=== PATIENT | male | born 1975 | race Caucasian/White ===

== ENCOUNTER → 2016-09-22 | Outpatient (CLI) | payer OTHER ==
[~2016-09-22] MED LIST: AMPH30CA3 PO; HYDR200T5 PO; OXYC-57 PO
--- NOTE | 2016-09-22 16:37 | DIAGNOSTIC IMAGING REPORT ---
TWO VIEW CHEST CLINICAL HISTORY: Scleroderma. Chest congestion. FINDINGS: PA and lateral chest radiographs are obtained. No prior studies are available for comparison at the time of dictation. The cardiomediastinal silhouette is unremarkable. The lungs and pleural spaces are clear. There is no pneumothorax. The bony thorax appears intact. IMPRESSION: No active disease in the chest. Electronically signed by: Damon Espinoza M.D. 09/22/2016 4:36 PM Dictated Date/Time: 09/22/2016 4:35 PM
== END | disposition home or self-care (01) ==
LOC: C.RAD1850 16:18
PROVIDERS: ATTEND Internal Medicine Rheumatology
DX: M34.9 Systemic sclerosis, unspecified (principal)

== ENCOUNTER 2016-09-25 18:28 | Emergency (ER) | payer OTHER | END 2016-09-25 18:42 | disposition left against medical advice (07) | LOC: C.EDB 18:29 | DX: S60.551A Superficial foreign body of right hand, initial encounter (principal); W45.8XXA Other foreign body or object entering through skin, initial encounter ==

== ENCOUNTER 2016-12-24 04:34 | Emergency (ER) | payer OTHER ==
[~2016-12-24] VITALS: Ht 190.5 cm; Wt 97.0 kg
[2016-12-24 04:37] VITALS: TEMP 36.8; Ht 190.5 cm; Wt 97.0 kg
[2016-12-24] MEDS ORDERED: ONDANSETRON INJ 2 MG/ML 2 ML VIAL IV STA (04:51)
[2016-12-24] MEDS ORDERED: SODIUM CHLORIDE 0.9% 1000ML 1,000 ML IV ONE (05:00)
[2016-12-24 05:15] LABS: BASO % 0.8 %; BASO ABS # 0.04 K/uL (0-0.2); COMPLETE YES; EOS % 8.4 %; HEMATOCRIT 43.8 % (42-52); IG% 0.2 %; LYMPH % 28.4 %; LYMPH ABS # 1.48 K/uL (1.2-3.4); MEAN CELL VOLUME 90.7 fL (80-100); MEAN CORPUSCULAR HEMOGLOBIN 31.7 pg (25-34); MEAN CORPUSCULAR HGB CONC 34.9 g/dl (32-36); MEAN PLATELET VOLUME 10.3 fL (7.4-10.4); MONO % 10.6 %; NEUT % 51.6 %; PLATELET COUNT 183 K/uL (130-400); RED BLOOD COUNT 4.83 M/uL (4.7-6.1); WHITE BLOOD COUNT 5.21 K/uL (4.8-10.8)
[2016-12-24] MEDS ORDERED: OPTIRAY 320 IV PRN (05:15)
[2016-12-24 05:18] LABS: URINE APPEARANCE CLEAR (CLEAR); URINE BILIRUBIN NEG (NEG); URINE COLOR YELLOW; URINE NITRITE NEG (NEG); URINE PH 7.5 (4.5-7.5); URINE SPECIFIC GRAVITY 1.014 (1.000-1.030); UROBILINOGEN NEG (NEG); ZZUR CULT IF INDIC CLEAN CATCH NO
[2016-12-24 05:22] LABS: MANUAL MICROSCOPIC REQUIRED? NO; REVIEW REQ? NO
[2016-12-24 05:33] LABS: BUN/CREATININE RATIO 16.6 (10-20); CALCIUM 8.7 mg/dl (8.5-10.1); CREATININE 0.84 mg/dl (0.60-1.40); POTASSIUM 4.2 mmol/L (3.5-5.1)
[2016-12-24 05:35] LABS: ALB/GLOB RATIO 1.6 (0.9-2)
[2016-12-24] MEDS ORDERED: AMPH30CA3 PO (05:50)
[2016-12-24] MEDS ORDERED: HYDR200T5 PO (06:10)
[2016-12-24] MEDS ORDERED: OXYC-57 PO (06:11)
--- NOTE | 2016-12-24 07:01 | EMERGENCY ROOM VISIT NOTE ---
History First contact with patient: 04:42 Chief Complaint: ABDOMINAL PAIN Stated Complaint: SHARP PAIN RIGHT LWR ABDOMEN Nursing Triage Summary: abdominal pain, more so on the right side, patient states not sure if it is his appendix or if he pulled something History of Present Illness The patient is a 41 year old male who presents to the Emergency Room with complaints of right lower quadrant abdominal pain worsening over the past 2 days. The patient states that his symptoms began while he was driving, and felt like his belt was too tight. He states that over the course of the past 48 hours he has had worsening pain in the right lower quadrant. He does not have a history of abdominal surgery in the past. He has not had nausea, vomiting, or diarrhea. He rates his discomfort a 7/10, describes it as a burning or tearing. He does not have flank pain or difficulty using the bathroom. Review of Systems More than 10 systems were reviewed and otherwise negative with the exception of history of present illness. Past Medical/Surgical History No pertinent chronic medical disease Family History No pertinent family history Social History Smoking Status: Current Some Day Smoker Occupation Status: employed Current/Historical Medications Scheduled Amphetamine-Dextroamphetamine 30MG (Adderall Xr 30MG), 30 MG PO DAILY Hydroxychloroquine Sulfate (Plaquenil), 400 MG PO DAILY Scheduled PRN Oxycodone/Acetaminophen 5MG/325MG (Percocet 5MG/325MG), 1 TABLET PO Q6H PRN for Pain Allergies Uncoded Allergies: PENICILLIN (Allergy, Mild, unknown, 12/24/16) states from when he was a kid, reaction unknown Physical Exam Vital Signs Date Time Temp Pulse Resp B/P (MAP) Pulse Ox O2 Delivery O2 Flow Rate FiO2 12/24/16 06:33 70 14 118/78 97 Room Air 12/24/16 05:19 78 16 121/84 98 Room Air 12/24/16 04:37 36.8 91 18 139/91 98 Room Air Physical Exam VITALS: Vitals are noted on the nurse's note and reviewed by myself. Vital signs stable. GENERAL: Well-developed, well-nourished, white male, who is in no acute distress and resting comfortably. Patient is cooperative with the examination. HEAD: Normocephalic atraumatic. HEART: Regular rate and rhythm without murmurs gallops or rubs. LUNGS: Clear to auscultation bilaterally without wheezes, rales or rhonchi. No retractions or accessory muscle use. ABDOMEN: Positive normal bowel sounds x 4. Soft with positive right lower quadrant tenderness on palpation. No rebound or guarding. No CVA tenderness. MUSCULOSKELETAL: No muscle atrophy, erythema, or edema noted. Full range of motion without joint tenderness in all extremities. Medical Decision & Procedures Laboratory Results 12/24/16 05:00 Red Blood Count 4.83, Mean Corpuscular Volume 90.7, Mean Corpuscular Hemoglobin 31.7, Mean Corpuscular Hemoglobin Concent 34.9, Mean Platelet Volume 10.3, Neutrophils (%) (Auto) 51.6, Lymphocytes (%) (Auto) 28.4, Monocytes (%) (Auto) 10.6, Eosinophils (%) (Auto) 8.4, Basophils (%) (Auto) 0.8, Neutrophils # (Auto ) 2.69, Lymphocytes # (Auto) 1.48, Monocytes # (Auto) 0.55, Eosinophils # (Auto ) 0.44, Basophils # (Auto) 0.04 12/24/16 05:00 Test 12/24/16 05:00 White Blood Count 5.21 K/uL (4.8-10.8) Red Blood Count 4.83 M/uL (4.7-6.1) Hemoglobin 15.3 g/dL (14.0-18.0) Hematocrit 43.8 % (42-52) Mean Corpuscular Volume 90.7 fL (80-100) Mean Corpuscular Hemoglobin 31.7 pg (25-34) Mean Corpuscular Hemoglobin Concent 34.9 g/dl (32-36) Platelet Count 183 K/uL (130-400) Mean Platelet Volume 10.3 fL (7.4-10.4) Neutrophils (%) (Auto) 51.6 % Lymphocytes (%) (Auto) 28.4 % Monocytes (%) (Auto) 10.6 % Eosinophils (%) (Auto) 8.4 % Basophils (%) (Auto) 0.8 % Neutrophils # (Auto) 2.69 K/uL (1.4-6.5) Lymphocytes # (Auto) 1.48 K/uL (1.2-3.4) Monocytes # (Auto) 0.55 K/uL (0.11-0.59) Eosinophils # (Auto) 0.44 K/uL (0-0.5) Basophils # (Auto) 0.04 K/uL (0-0.2) RDW Standard Deviation 41.7 fL (36.4-46.3) RDW Coefficient of Variation 12.5 % (11.5-14.5) Immature Granulocyte % (Auto) 0.2 % Immature Granulocyte # (Auto) 0.01 K/uL (0.00-0.02) Urine Color YELLOW Urine Appearance CLEAR (CLEAR) Urine pH 7.5 (4.5-7.5) Urine Specific [place] 1.014 (1.000-1.030) Urine Protein NEG (NEG) Urine Glucose (UA) NEG (NEG) Urine Ketones NEG (NEG) Urine Occult Blood NEG (NEG) Urine Nitrite NEG (NEG) Urine Bilirubin NEG (NEG) Urine Urobilinogen NEG (NEG) Urine Leukocyte Esterase NEG (NEG) Anion Gap 6.0 mmol/L (3-11) Est Creatinine Clear Calc Drug Dose 138.3 ml/min Estimated GFR () 126.0 Estimated GFR (Non- 108.8 BUN/Creatinine Ratio 16.6 (10-20) Calcium Level 8.7 mg/dl (8.5-10.1) Total Bilirubin 0.6 mg/dl (0.2-1) Aspartate Amino Transf (AST/SGOT) 19 U/L (15-37) Alanine Aminotransferase (ALT/SGPT) 38 U/L (12-78) Alkaline Phosphatase 53 U/L (45-117) Total Protein 6.9 gm/dl (6.4-8.2) Albumin 4.2 gm/dl (3.4-5.0) Globulin 2.7 gm/dl (2.5-4.0) Albumin/Globulin Ratio 1.6 (0.9-2) Lipase 63 U/L (73-393) Medications Administered Medications (Trade) Dose Ordered Sig/Margaret Route Start Time Stop Time Status Last Admin Dose Admin Sodium Chloride 1,000 ml @ 999 mls/hr Q1H1M ONCE IV 12/24/16 05:00 12/24/16 06:00 DC 12/24/16 05:00 999 MLS/HR Ondansetron HCl (Zofran Inj) 4 mg NOW STAT IV 12/24/16 04:51 12/24/16 04:53 DC 12/24/16 05:16 4 MG ED Course Physical exam and history were performed. Nursing notes and EMR were reviewed. Patient appears to have right lower quadrant abdominal pain over the past 2 days. He does have tenderness in this area. IV access was established and labs were obtained. The patient was hydrated medicated as above. CT scan of the abdomen and pelvis was performed with contrast. The patient's blood work is as above and was reviewed. He does not have a significantly elevated white blood cell count, gross anemia, bandemia, or significant electrolyte imbalance or lipase and transaminases are nondiagnostic. Urine is without evidence of infection. The patient remained in stable condition until the time of shift change. At this time CT scan has been ordered and is pending. The patient was discussed with Torie Mclaughlin PA-C, who will assume care at this time. Please see her dictation for further patient course, plan, and disposition. The chart was completed utilizing [employer] Speech Voice Recognition Software. Grammatical errors, random word insertions, pronoun errors, and incomplete sentences are an occasional consequence of this system due to software limitations, ambient noise, and hardware issues. Any formal questions or concerns about the content, text, or information contained within the body of this dictation should be directly addressed to the provider for clarification. . Medical Decision Differential diagnosis: Etiologies such as appendicitis, diverticulitis, PUD, biliary pathology, UTI, pancreatitis, obstruction, mesenteric ischemia, aortic pathology, infections, inflammatory bowel disease, renal colic, as well as others were entertained. Impression Primary Impression: Abdominal pain Departure Information Referrals Bob Muñoz M.D. (PCP) Patient Instructions [facility]
--- NOTE | 2016-12-24 08:06 | DIAGNOSTIC IMAGING REPORT ---
CT ABD/PELVIS IV AND ORAL CONT CLINICAL HISTORY: Worsening right lower quadrant abdominal pain. COMPARISON STUDY: None. TECHNIQUE: Following the IV administration of 94 mL of Optiray-320, CT scan of the abdomen and pelvis was performed from the lung bases to the proximal femurs. Images are reviewed in the axial, sagittal, and coronal planes. IV contrast was administered without complication. CT DOSE: 709.40 mGycm FINDINGS: Lower chest: There are bibasal atelectatic changes. Liver: There is a 4 mm hypodensity within the central liver. This is too small to characterize but is of doubtful significance. Gallbladder: Unremarkable. Spleen: Normal in size and attenuation. Pancreas: Unremarkable. Adrenal glands: Unremarkable. Kidneys: There is symmetric renal cortical enhancement. The kidneys are normal in size without hydronephrosis. Bowel: There are no transition zones indicate bowel obstruction. The appendix appears normal. There is no acute diverticulitis. There is a moderate amount of stool within the right and transverse colon. Peritoneum: There is no intraperitoneal free air or abdominal ascites. Vasculature: The abdominal aorta is normal in course and caliber. Adenopathy: Para-aortic lymph nodes are the upper limits of normal in size. There is no pathologic abdominal adenopathy by size criteria Pelvic viscera: There is mild nonspecific bladder wall thickening. Skeletal structures: No destructive osseous lesions are seen. IMPRESSION: 1. No evidence of bowel obstruction. No evidence of free air. 2. Normal appendix 3. No evidence of acute diverticulitis 4. Mild bladder wall thickening 5. Mild fecal retention Electronically signed by: Baltazar Thomas M.D. 12/24/2016 8:04 AM Dictated Date/Time: 12/24/2016 8:00 AM
--- NOTE | 2016-12-24 08:09 | EMERGENCY ROOM VISIT NOTE ---
ED Visit Note First contact with patient: 07:03 The patient was signed out to me at shift change by Reece Riggs PA-C. Briefly, the patient presents with right-sided abdominal pain. At the time of sign out, CT imaging was pending. CT was obtained as below. The patient has mild fecal retention. I did review the entire CT with the patient. I also reviewed the laboratory studies with him. The patient states that he is currently living in for yet but is trying to transition back to this area. He was advised to follow up with gastroenterology and or a family doctor for recheck and further management early next week. He should return to the ER with any worsening symptoms. CT ABD/PELVIS IV AND ORAL CONT CLINICAL HISTORY: Worsening right lower quadrant abdominal pain. COMPARISON STUDY: None. TECHNIQUE: Following the IV administration of 94 mL of Optiray-320, CT scan of the abdomen and pelvis was performed from the lung bases to the proximal femurs. Images are reviewed in the axial, sagittal, and coronal planes. IV contrast was administered without complication. CT DOSE: 709.40 mGycm FINDINGS: Lower chest: There are bibasal atelectatic changes. Liver: There is a 4 mm hypodensity within the central liver. This is too small to characterize but is of doubtful significance. Gallbladder: Unremarkable. Spleen: Normal in size and attenuation. Pancreas: Unremarkable. Adrenal glands: Unremarkable. Kidneys: There is symmetric renal cortical enhancement. The kidneys are normal in size without hydronephrosis. Bowel: There are no transition zones indicate bowel obstruction. The appendix appears normal. There is no acute diverticulitis. There is a moderate amount of stool within the right and transverse colon. Peritoneum: There is no intraperitoneal free air or abdominal ascites. Vasculature: The abdominal aorta is normal in course and caliber. Adenopathy: Para-aortic lymph nodes are the upper limits of normal in size. There is no pathologic abdominal adenopathy by size criteria Pelvic viscera: There is mild nonspecific bladder wall thickening. Skeletal structures: No destructive osseous lesions are seen. IMPRESSION: 1. No evidence of bowel obstruction. No evidence of free air. 2. Normal appendix 3. No evidence of acute diverticulitis 4. Mild bladder wall thickening 5. Mild fecal retention
[2016-12-24 08:28] VITALS: BP 137/84; PULSE 64; O2SAT 98
[2017-06-07] MEDS ORDERED: DIAZ5TAB3 PO (12:13)
[2017-06-07] MEDS ORDERED: MONT1TAB3 PO (12:24)
[2017-06-09] MEDS ORDERED: OXYC-57 PO (08:45)
== END 2016-12-24 08:28 | disposition home or self-care (01) ==
LOC: C.EDB 04:35 → C.EDA 08:28
DX: R10.31 Right lower quadrant pain (principal); F17.210 Nicotine dependence, cigarettes, uncomplicated; Z79.899 Other long term (current) drug therapy

== ENCOUNTER → 2017-05-23 | Outpatient (CLI) | payer OTHER | END | disposition home or self-care (01) | LOC: C.LABSPEC 14:05 | PROVIDERS: ATTEND Family Medicine | DX: N39.0 Urinary tract infection, site not specified (principal) ==

== ENCOUNTER → 2017-06-09 | Day surgery (SDC) | payer OTHER ==
[2017-06-07 12:14] VITALS: Ht 189.2 cm; Wt 95.5 kg
--- NOTE | 2017-06-08 09:37 | History and Physical: Surg Cnt ---
History & Physical Date Jun 08, 2017. Chief Complaint sinus infections History of Present Illness The patient is a 42 year old male with complaints of chronic sinusitis Additional History Hepatic Disease: No Endocrine Disorder: No Kidney Disease: No Hypertension: No Heart Disease: No Bleeding Tendencies: No Infectious Diseases: No Allergies Coded Allergies: Penicillins (Verified Allergy, Unknown, UNKNOWN, 06/07/17) Uncoded Allergies: CATS (Allergy, Severe, ANAPHALYSIS, 06/07/17) Home Medications Scheduled Amphetamine-Dextroamphetamine 30MG (Adderall Xr 30MG), 30 MG PO QAM Hydroxychloroquine Sulfate (Plaquenil), 400 MG PO QPM Scheduled PRN Diazepam (Valium), 5 MG PO DAILY PRN for Anxiety Montelukast Sodium (Singulair), 10 MG PO DAILY PRN for Seasonal Allergies Physical Examination Skin: warm/dry, no rash Eyes: normal inspection, EOMI, sclerae normal ENT: normal ENT inspection, pharynx normal Head: normocephalic, atraumatic Neck: supple, no adenopathy, trachea midline Respiratory/Chest: lungs clear, normal breath sounds, no respiratory distress Cardiovascular: regular rate, rhythm, no edema, no murmur Abdomen / GI: normal bowel sounds, non tender Back: normal inspection Extremities: normal inspection, normal range of motion Neurologic/Psych: no motor/sensory deficits, alert, normal reflexes, oriented x 3 Diagnosis chronic sinusitis Plan of Treatment endoscopic sinus surgery
[~2017-06-09] VITALS: Ht 189.2 cm; Wt 95.5 kg
[~2017-06-09] MED LIST changes: +ATROPINE SULFATE 0.1 MG/ML 5ML SYR IV PRN; +CEFAZOLIN 1000MG IV PUSH 5 ML IV SCH; +CEFAZOLIN 2000MG IV PUSH 10 ML IV SCH; +DEXAMETHASONE SOD INJ 4 MG/ML VIAL ONE; +DIAZ5TAB3 PO; +EpHEDrine SULFATE INJ 50 MG/ML AMP IV PRN; +EpINEphrine INJ 1MG/ML AMP 1 MG/ML AMP ONE; +FENTANYL CITRATE INJ 50 MCG/1 ML 2 ML VIAL IV PRN; +FENTANYL CITRATE INJ 50 MCG/1 ML 2 ML VIAL ONE; +HYDROmorphone INJ 1 MG/ML SYR IV PRN; +LACTATED RINGER'S 1000ML 1,000 ML IV SCH; +LIDO 2%/EPINEPHRINE 1:100000 20 ML VIAL INFIL ONE; +LIDOCAINE 4% MPF SOAK 5 ML = 1 DOSE TOP ONE; +LIDOCAINE HCL 2% 2 ML VIAL (20MG/ML) ONE; +MIDAZOLAM HCL 1 MG/ML 2ML VIAL ONE; +MONT1TAB3 PO; +ONDANSETRON INJ 2 MG/ML 2 ML VIAL IV PRN; +ONDANSETRON INJ 2 MG/ML 2 ML VIAL ONE; +OXYCODONE/ACETAMINOPHEN 5-325 TAB PO PRN; +PROPOFOL IV EMULSION 10 MG/ML 20 ML VIAL IV ONE; +SODIUM CHLORIDE 0.9% 1000ML 1,000 ML IV SCH
--- NOTE | 2017-06-09 06:41 | History & Physical Bridge Note ---
H&P Re-Evaluation Bridge Note: I have examined the patient, reviewed the History & Physical and in the interval since the performance of the History & Physical I have noted the following changes of clinical significance: No changes noted
--- NOTE | 2017-06-09 08:46 | Discharge Instructions-SurgCtr ---
Discharge Instructions Date of Service Jun 09, 2017. Visit Reason for Visit: Chronic Sinusitis Discharge Discharge Diagnosis / Problem: same Discharge Goals Goal(s): Improve disease control Activity Recommendations Activity Limitations: resume your previous activity Anesthesia . Post Anesthesia Instructions: If you have had General Anesthesia or IV Sedation: * Do not drive today. * Resume driving when surgeon permits. * Do not make important decisions or sign legal documents today. * Call surgeon for: 1. Temperature elevations greater than 101 degrees F. 2. Uncontrollable pain. 3. Excessive bleeding. 4. Persistent nausea and vomiting. 5. Medication intolerance (nausea, vomiting or rash). * For nausea and vomiting use only clear liquids such as: tea, soda, bouillon until nausea subsides, then gradually increase diet as tolerated. * If you have any concerns or questions, call your surgeon's office. If physician is unavailable and it is an emergency, call 911 or go to the nearest emergency room. . Instructions / Follow-Up Instructions / Follow-Up ACTIVITY RECOMMENDATIONS: * Being up and around is good, but no strenuous activity, heavy lifting or physical exertion for one week. * Keep your head elevated 30 degrees when lying down or sleeping. * Do not blow your nose for 48 hours, sniff back instead. * Avoid hot showers. OVER THE COUNTER MEDICATIONS: * You may use Tylenol * Avoid aspirin or aspirin containing products, e.g. as they may increase bleeding. SPECIAL CARE INSTRUCTIONS: * Expect to have bloody drainage from your nose and/or down your throat for one to three days. Change drip pad as needed. * Begin irrigating your nose with saline solution today, at least six to ten times per day and sniff back to help remove old clots or crust. * You may experience nasal and facial congestion, pain and pressure, this is normal. * Please call with any significant and/or progressive pain, redness, swelling around the eyes, visual changes, fever of 101.5 degrees F, active bleeding or any problems or concerns. * If active bleeding occurs, spray the nose three times at one minute intervals with Afrin spray and call or cell phone: . If unable to reach the doctor, go to the nearest Emergency Department. Special Diet: * Avoid extremely hot fluids. FOLLOW UP VISIT: Follow-up Visit with Dr. Shay If not already scheduled, please call to schedule. Diet Recommendations Home Diet: no limitations Procedures Procedures Performed: Endoscopic Sinus Surgery with BrainLab Navigation, Right and Left Frontal Sinus , Maxillary and Total Ethmoidectomies Pending Studies Studies pending at discharge: no Medical Emergencies . Who to Call and When: Medical Emergencies: If at any time you feel your situation is an emergency, please call 911 immediately. . Non-Emergent Contact Non-Emergency issues call your: Primary Care Provider . . "Provider Documentation" section prepared by Awa Shay. [facility] Drug Monitoring Program Search Results: no issues identified
--- NOTE | 2017-06-09 09:20 | OPERATIVE REPORT ---
DATE OF OPERATION: 06/09/2017 PREOPERATIVE DIAGNOSIS: Chronic sinusitis. POSTOPERATIVE DIAGNOSIS: Same. PROCEDURE: Right and left frontal, right and left total ethmoid and right and left maxillary sinus antrostomies. SURGEON: Dr. Shay. ANESTHESIA: General LMA. COMPLICATIONS: None. BLOOD LOSS: 30 mL. HISTORY OF PRESENT ILLNESS: A 42-year-old gentleman with significant recurrent chronic sinusitis, failed medical management. DESCRIPTION OF PROCEDURE: The patient brought to the operating room and placed in the supine position. General anesthesia was induced using LMA, prepped and draped in the usual sterile manner. Nose decongested using cottonoids with topical solution of 4 mL of 4% Xylocaine with 1 mL of epinephrine. Injection of 2% Xylocaine with 1:100,000 strength epinephrine was also used. ASOCSLAB device calibrated and used for the entire procedure. The right maxillary sinus cannulated with guidewire and dilated using the 6-mm balloon as was left maxillary sinus. The left nasofrontal duct was cannulated with the guidewire and dilated using the 6-mm balloon. The guidewire was left in place as a marker. The frontal sinusotomy was performed using the shaver coupled with the BrainLAB device, removing the anterior wall and then the posterior wall of the agger nasi cell. There was also a supraethmoidal air cell. This was opened by going through the bullae ethmoidalis and dissecting superiorly to the supraethmoidal air cell, which was found to have purulent material. This was directly behind the nasofrontal duct. At this point, the ground lamella was penetrated and posterior ethmoid air cells were opened. Skull base and lamina papyracea were identified. These structures were followed anteriorly with the BrainLAB coupled with the shaver, removing both all the posterior and then all the anterior ethmoid airs. The nasofrontal duct was then redilated and a Contour stent was placed. The maxillary sinus was opened by removing the polypoid tissue at the posterior part of the ostia and at the anterior wall of the bullae ethmoidalis. The regular Propel stent was placed. The right frontal sinusotomy, total ethmoidectomy, and maxillary sinus antrostomy was performed in a similar manner again placing the Contour and the Propel stents. The patient tolerated the procedure well and was taken to recovery area in satisfactory condition. I attest to the content of the Intraoperative Record and any orders documented therein. Any exceptions are noted below. MTDD
[2017-06-09 09:55] VITALS: BP 132/77; PULSE 72; O2SAT 99
--- NOTE | 2017-06-09 10:00 | Anesthesia Progress Nt - [facility] ---
Anesthesia Post Op Note Date & Time Jun 09, 2017 at 10:00 Vital Signs Pain Intensity: 6 Vital Signs Past 12 Hours Date Time Temp Pulse Resp B/P (MAP) Pulse Ox O2 Delivery O2 Flow Rate FiO2 06/09/17 09:13 36.6 70 16 141/93 (109) 99 Room Air 06/09/17 09:11 36.6 151/89 (102) 06/09/17 09:08 75 15 06/09/17 09:08 77 15 99 06/09/17 09:06 136/85 (100) 06/09/17 09:04 Room Air 06/09/17 09:03 81 13 99 06/09/17 09:03 82 13 06/09/17 09:01 141/82 (97) 06/09/17 08:58 84 06/09/17 08:58 84 100 06/09/17 08:56 141/90 (97) 06/09/17 08:53 73 14 06/09/17 08:53 74 14 100 06/09/17 08:43 36.4 86 16 128/75 100 Diffusion Mask 5 06/09/17 06:37 36.6 88 16 149/79 (102) 95 Room Air Notes Mental Status: alert / awake / arousable, participated in evaluation Pt Amnestic to Procedure: Yes Nausea / Vomiting: adequately controlled Pain: adequately controlled Airway Patency, RR, SpO2: stable & adequate BP & HR: stable & adequate Hydration State: stable & adequate Anesthetic Complications: no major complications apparent
== END | disposition home or self-care (01) ==
LOC: X.SURG 06:26
PROVIDERS: ATTEND Otolaryngology
DX: J32.2 Chronic ethmoidal sinusitis (principal); J32.0 Chronic maxillary sinusitis; J32.1 Chronic frontal sinusitis
CPT/HCPCS: 31255; 31256; 31276; 61782; S1090

== ENCOUNTER 2017-10-07 16:11 | Emergency (ER) | payer OTHER ==
[~2017-10-07] VITALS: Ht 188 cm; Wt 100.0 kg
[~2017-10-07 16:11] MED LIST changes: -ATROPINE SULFATE 0.1 MG/ML 5ML SYR IV PRN; -CEFAZOLIN 1000MG IV PUSH 5 ML IV SCH; -CEFAZOLIN 2000MG IV PUSH 10 ML IV SCH; -DEXAMETHASONE SOD INJ 4 MG/ML VIAL ONE; -EpHEDrine SULFATE INJ 50 MG/ML AMP IV PRN; -EpINEphrine INJ 1MG/ML AMP 1 MG/ML AMP ONE; -FENTANYL CITRATE INJ 50 MCG/1 ML 2 ML VIAL IV PRN; -FENTANYL CITRATE INJ 50 MCG/1 ML 2 ML VIAL ONE; -HYDROmorphone INJ 1 MG/ML SYR IV PRN; -LACTATED RINGER'S 1000ML 1,000 ML IV SCH; -LIDO 2%/EPINEPHRINE 1:100000 20 ML VIAL INFIL ONE; -LIDOCAINE 4% MPF SOAK 5 ML = 1 DOSE TOP ONE; -LIDOCAINE HCL 2% 2 ML VIAL (20MG/ML) ONE; -MIDAZOLAM HCL 1 MG/ML 2ML VIAL ONE; -ONDANSETRON INJ 2 MG/ML 2 ML VIAL IV PRN; -ONDANSETRON INJ 2 MG/ML 2 ML VIAL ONE; -OXYCODONE/ACETAMINOPHEN 5-325 TAB PO PRN; -PROPOFOL IV EMULSION 10 MG/ML 20 ML VIAL IV ONE; -SODIUM CHLORIDE 0.9% 1000ML 1,000 ML IV SCH
[2017-10-07 16:13] VITALS: TEMP 36.8; Ht 188 cm; Wt 100.0 kg
[2017-10-07 16:33] VITALS: O2SAT 97
[2017-10-07] MEDS ORDERED: METOCLOPRAMIDE HCL INJ 5 MG/ML 2 ML VIAL IV STA (16:46)
[2017-10-07] MEDS ORDERED: SODIUM CHLORIDE 0.9% 1000ML 2,000 ML IV STA (16:46)
[2017-10-07 17:14] LABS: BASO % 0.3 %; BASO ABS # 0.02 K/uL (0-0.2); EOS % 6.2 %; HEMATOCRIT 45.1 % (42-52); HEMOGLOBIN 16.1 g/dL (14.0-18.0); IG# 0.01 K/uL (0.00-0.02); LYMPH % 20.5 %; LYMPH ABS # 1.32 K/uL (1.2-3.4); MEAN CELL VOLUME 90.9 fL (80-100); MEAN CORPUSCULAR HEMOGLOBIN 32.5 pg (25-34); MEAN CORPUSCULAR HGB CONC 35.7 g/dl (32-36); MEAN PLATELET VOLUME 10.7 fL (7.4-10.4); MONO % 9.3 %; NEUT % 63.5 %; NEUT ABS # 4.09 K/uL (1.4-6.5); PLATELET COUNT 163 K/uL (130-400); RED CELL DISTRIBUTION WIDTH CV 12.7 % (11.5-14.5); RED CELL DISTRIBUTION WIDTH SD 42.2 fL (36.4-46.3); WHITE BLOOD COUNT 6.44 K/uL (4.8-10.8)
--- NOTE | 2017-10-07 17:24 | DIAGNOSTIC IMAGING REPORT ---
SINGLE VIEW CHEST CLINICAL HISTORY: Atypical chest pain. FINDINGS: An AP, portable, upright chest radiograph is compared to study dated 09/22/2016. The cardiomediastinal silhouette is unremarkable. The lungs and pleural spaces are clear. No pneumothorax is seen. The bony thorax is grossly intact. IMPRESSION: No active disease in the chest. Electronically signed by: Damon Espinoza M.D. 10/07/2017 5:23 PM Dictated Date/Time: 10/07/2017 5:23 PM
[2017-10-07] MEDS ORDERED: OXYC-57 PO (17:38)
[2017-10-07] MEDS ORDERED: AMPH20CA3 PO (17:38)
[2017-10-07] MEDS ORDERED: AMLO2.5T PO (17:38)
[2017-10-07] MEDS ORDERED: AMPH10TA2 PO (17:38)
[2017-10-07] MEDS ORDERED: PRED-301 PO (17:38)
[2017-10-07 17:49] LABS: ALT/SGPT 30 U/L (12-78); AST/SGOT 15 U/L (15-37); BLOOD UREA NITROGEN 12 mg/dl (7-18); CALCIUM 8.8 mg/dl (8.5-10.1); CARBON DIOXIDE 26 mmol/L (21-32); CREATININE 1.02 mg/dl (0.60-1.40); GLUCOSE 122 mg/dl (70-99); LIPASE 71 U/L (73-393); POTASSIUM 3.6 mmol/L (3.5-5.1); SODIUM 139 mmol/L (136-145)
[2017-10-07 17:52] LABS: ALKALINE PHOSPHATASE 53 U/L (45-117)
--- NOTE | 2017-10-07 19:16 | DIAGNOSTIC IMAGING REPORT ---
MRI OF THE BRAIN COMBO CLINICAL HISTORY: Diffuse paresthesias. Ataxia. COMPARISON STUDY: CT scan of the paranasal sinuses dated 05/12/2017. TECHNIQUE: MRI of the brain was performed utilizing various T1 and T2-weighted sequences in the axial, sagittal, and coronal planes. Contrast-enhanced sequences were acquired following the administration of 9.9 cc of Gadavist. The examination was performed using the multiple sclerosis protocol. FINDINGS: Brain parenchyma: The brain parenchyma is normal in appearance. A development venous anomaly is incidentally noted in the left parietal lobe. There is no hemorrhage or mass effect. There is no restricted diffusion to suggest acute ischemia. No enhancing mass lesion is identified on the postcontrast images. Phillips-white matter differentiation is preserved. No extra-axial fluid collection is seen. The cerebellar tonsils are normal in configuration. Ventricles, sulci, and cisterns: Normal in configuration. Pituitary and sella: Unremarkable. Intracranial vasculature: Normal flow voids are maintained at the skull base. Orbits: The bony orbits are grossly intact. Orbital contents are normal in appearance. Sinuses and mastoids: There is evidence of previous paranasal sinus surgery. There is a 1.2 cm retention cyst in the left maxillary antrum. The remaining paranasal sinuses are clear. The mastoid air cells are well pneumatized. Calvarium: Unremarkable. Cervical cord: Partially visualized cervical spinal cord is normal in morphology and signal intensity. IMPRESSION: No acute intracranial abnormality. Electronically signed by: Damon Espinoza M.D. 10/07/2017 7:15 PM Dictated Date/Time: 10/07/2017 7:11 PM
--- NOTE | 2017-10-07 19:55 | DIAGNOSTIC IMAGING REPORT ---
MRI OF THE ORBITS COMBO CLINICAL HISTORY: Blurred vision. COMPARISON STUDY: MRI of the brain performed concurrently on 10/07/2017. TECHNIQUE: MRI of the orbits is performed utilizing various T1 and T2-weighted sequences in the axial, sagittal, and coronal planes. Contrast-enhanced sequences were acquired following the IV administration of 9.9 cc of Gadavist. FINDINGS: The bony orbits are intact as visualized. The orbital contents are normal in appearance. There is no evidence of intra or extraconal mass. The extraocular muscles are normal and symmetric. The optic nerves are normal as visualized. The visualized brain parenchyma is normal in appearance. There is evidence of previous paranasal sinus surgery. Retention cyst is noted in the left maxillary antrum. IMPRESSION: Unremarkable MRI assessment of the orbits. Electronically signed by: Damon Espinoza M.D. 10/07/2017 7:53 PM Dictated Date/Time: 10/07/2017 7:48 PM
--- NOTE | 2017-10-07 20:27 | EMERGENCY ROOM VISIT NOTE ---
History Report prepared by Miguel: Jaymie Ovalle Under the Supervision of: Dr. Titi Boo M.D. 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 "Weird numbness through my body for the past 4 days. My vision is off. I've had these sx not as bad and not all at once. I'm losing my balance. I slept for the past 4 days. I didn't know today was Fri so I guess there is confusion. I have weird muscle twitches and numbness. My vision is the worst it is ever been. I've had a h/a and stiff neck. A couple times I felt like I was going to pass out." Sx began Mon night. History of Present Illness The patient is a 42 year old male who presents to the Emergency Room with complaints of worsening neurological symptoms starting 4 days ago. The patient has a history of systemic sclerosis and has had these symptoms before. He notes that he has not had these symptoms this severely or concurrently. He reports changes to his vision. He is having trouble focusing his vision and with coloration. He has felt dizzy and off balance. He has been able to walk, but does not feel steady. He had an episode where he felt like he might pass out today. He has had numbness in his arms and legs. He reports problems with his cognition. He is having worse cramping in his abdomen. He has also had problems with his sinuses and follows with ENT. These symptoms have been evolving over the past year. 1 month ago, his PCP recommended a brain MRI which he has not yet been able to schedule. Because of his worsening symptoms these past 4 days, he came to the ED. He denies any fever, chills, cough, nausea, vomiting, or diarrhea. He denies any recent falls. He was taken off Plaquenil several months ago. He is currently not on any medications for his sclerosis. He admits to weekly alcohol use. He denies any drug use. Source of History: patient Onset: 4 days ago Position: other (neurological) Quality: other (neuro symptoms) Timing: worsening Associated Symptoms: + abdominal pain, + numbness, No fevers, No chills, No cough, No nausea, No vomiting, No diarrhea Note: Pt reports vision changes, dizziness, feeling off balance, cognitive problems. Review of Systems See HPI for pertinent positives and negatives. A total of ten systems were reviewed and were otherwise negative. Past Medical & Surgical Medical Problems: (1) Systemic sclerosis Family History Seizures Social History Smoking Status: Never Smoker Marital Status: Current/Historical Medications Scheduled Amlodipine (Norvasc), 2.5 MG PO DAILY Amphetamine-Dextroamphetamine 20MG (Adderall Xr 20MG), 20 MG PO MIDDAY Amphetamine-Dextroamphetamine 30MG (Adderall Xr 30MG), 30 MG PO QAM Montelukast Sodium (Singulair), 10 MG PO QPM Prednisone (Prednisone), 5-10 MG PO DAILY Scheduled PRN Amphetamine-Dextroamphetamine 10MG (Adderall 10MG), 10 MG PO DAILY PRN for ADHD Diazepam (Valium), 5 MG PO DAILY PRN for Anxiety Oxycodone/Acetaminophen 5MG/325MG (Percocet 5MG/325MG), 1 TAB PO BID PRN for Pain Allergies Coded Allergies: Penicillins (Verified Allergy, Unknown, UNKNOWN, 06/09/17) Uncoded Allergies: CATS (Allergy, Severe, ANAPHALYSIS, 06/07/17) Physical Exam Vital Signs Date Time Temp Pulse Resp B/P (MAP) Pulse Ox O2 Delivery O2 Flow Rate FiO2 10/07/17 20:51 73 18 151/96 96 10/07/17 19:25 78 18 126/89 98 Room Air 10/07/17 17:07 90 18 132/86 97 Room Air 10/07/17 16:57 93 10/07/17 16:33 103 18 155/96 97 Room Air 10/07/17 16:33 97 Room Air 10/07/17 16:13 36.8 119 16 153/83 95 Room Air Physical Exam GENERAL: Awake, alert, anxious and fatigued-appearing, in no distress HENT: Normocephalic, atraumatic. Dry mucous membranes. EYES: Normal conjunctiva. Sclera non-icteric. NECK: Supple. No nuchal rigidity. FROM. No JVD. RESPIRATORY: Clear to auscultation. CARDIAC: Regular rate, normal rhythm. Extremities warm and well perfused. Pulses equal. ABDOMEN: Soft, non-distended. No tenderness to palpation. No rebound or guarding. No masses. RECTAL: Deferred. MUSCULOSKELETAL: Chest examination reveals no tenderness. The back is symmetrical on inspection without obvious abnormality. There is no CVA tenderness to palpation. No joint edema. LOWER EXTREMITIES: Calves are equal size bilaterally and non-tender. No edema. No discoloration. NEURO: Normal sensorium. No sensory or motor deficits noted. Normal cerebellar function with [id number], alternating palms, [id number]. 5/5 strength and SILT x 4 ext. SKIN: No rash or jaundice noted. Medical Decision & Procedures ER Provider Diagnostic Interpretation: Radiology results as stated below per my review and radiologist interpretation: SINGLE VIEW CHEST CLINICAL HISTORY: Atypical chest pain. FINDINGS: An AP, portable, upright chest radiograph is compared to study dated 09/22/2016. The cardiomediastinal silhouette is unremarkable. The lungs and pleural spaces are clear. No pneumothorax is seen. The bony thorax is grossly intact. IMPRESSION: No active disease in the chest. Electronically signed by: Damon Espinoza M.D. 10/07/2017 5:23 PM Dictated Date/Time: 10/07/2017 5:23 PM MRI OF THE BRAIN COMBO CLINICAL HISTORY: Diffuse paresthesias. Ataxia. COMPARISON STUDY: CT scan of the paranasal sinuses dated 05/12/2017. TECHNIQUE: MRI of the brain was performed utilizing various T1 and T2-weighted sequences in the axial, sagittal, and coronal planes. Contrast-enhanced sequences were acquired following the administration of 9.9 cc of Gadavist. The examination was performed using the multiple sclerosis protocol. FINDINGS: Brain parenchyma: The brain parenchyma is normal in appearance. A development venous anomaly is incidentally noted in the left parietal lobe. There is no hemorrhage or mass effect. There is no restricted diffusion to suggest acute ischemia. No enhancing mass lesion is identified on the postcontrast images. Phillips-white matter differentiation is preserved. No extra-axial fluid collection is seen. The cerebellar tonsils are normal in configuration. Ventricles, sulci, and cisterns: Normal in configuration. Pituitary and sella: Unremarkable. Intracranial vasculature: Normal flow voids are maintained at the skull base. Orbits: The bony orbits are grossly intact. Orbital contents are normal in appearance. Sinuses and mastoids: There is evidence of previous paranasal sinus surgery. There is a 1.2 cm retention cyst in the left maxillary antrum. The remaining paranasal sinuses are clear. The mastoid air cells are well pneumatized. Calvarium: Unremarkable. Cervical cord: Partially visualized cervical spinal cord is normal in morphology and signal intensity. IMPRESSION: No acute intracranial abnormality. Electronically signed by: Damon Espinoza M.D. 10/07/2017 7:15 PM Dictated Date/Time: 10/07/2017 7:11 PM MRI OF THE ORBITS COMBO CLINICAL HISTORY: Blurred vision. COMPARISON STUDY: MRI of the brain performed concurrently on 10/07/2017. TECHNIQUE: MRI of the orbits is performed utilizing various T1 and T2-weighted sequences in the axial, sagittal, and coronal planes. Contrast-enhanced sequences were acquired following the IV administration of 9.9 cc of Gadavist. FINDINGS: The bony orbits are intact as visualized. The orbital contents are normal in appearance. There is no evidence of intra or extraconal mass. The extraocular muscles are normal and symmetric. The optic nerves are normal as visualized. The visualized brain parenchyma is normal in appearance. There is evidence of previous paranasal sinus surgery. Retention cyst is noted in the left maxillary antrum. IMPRESSION: Unremarkable MRI assessment of the orbits. Electronically signed by: Damon Espinoza M.D. 10/07/2017 7:53 PM Dictated Date/Time: 10/07/2017 7:48 PM Laboratory Results 10/07/17 17:01 Red Blood Count 4.96, Mean Corpuscular Volume 90.9, Mean Corpuscular Hemoglobin 32.5, Mean Corpuscular Hemoglobin Concent 35.7, Mean Platelet Volume 10.7, Neutrophils (%) (Auto) 63.5, Lymphocytes (%) (Auto) 20.5, Monocytes (%) (Auto) 9.3, Eosinophils (%) (Auto) 6.2, Basophils (%) (Auto) 0.3, Neutrophils # (Auto) 4.09, Lymphocytes # (Auto) 1.32, Monocytes # (Auto) 0.60, Eosinophils # (Auto) 0.40, Basophils # (Auto) 0.02 10/07/17 17:01 Test 10/07/17 17:01 10/07/17 17:13 White Blood Count 6.44 K/uL (4.8-10.8) Red Blood Count 4.96 M/uL (4.7-6.1) Hemoglobin 16.1 g/dL (14.0-18.0) Hematocrit 45.1 % (42-52) Mean Corpuscular Volume 90.9 fL (80-100) Mean Corpuscular Hemoglobin 32.5 pg (25-34) Mean Corpuscular Hemoglobin Concent 35.7 g/dl (32-36) Platelet Count 163 K/uL (130-400) Mean Platelet Volume 10.7 fL (7.4-10.4) Neutrophils (%) (Auto) 63.5 % Lymphocytes (%) (Auto) 20.5 % Monocytes (%) (Auto) 9.3 % Eosinophils (%) (Auto) 6.2 % Basophils (%) (Auto) 0.3 % Neutrophils # (Auto) 4.09 K/uL (1.4-6.5) Lymphocytes # (Auto) 1.32 K/uL (1.2-3.4) Monocytes # (Auto) 0.60 K/uL (0.11-0.59) Eosinophils # (Auto) 0.40 K/uL (0-0.5) Basophils # (Auto) 0.02 K/uL (0-0.2) RDW Standard Deviation 42.2 fL (36.4-46.3) RDW Coefficient of Variation 12.7 % (11.5-14.5) Immature Granulocyte % (Auto) 0.2 % Immature Granulocyte # (Auto) 0.01 K/uL (0.00-0.02) Erythrocyte Sedimentation Rate 2 mm/hr (0-14) Anion Gap 7.0 mmol/L (3-11) Est Creatinine Clear Calc Drug Dose 119.2 ml/min Estimated GFR () 104.6 Estimated GFR (Non- 90.2 BUN/Creatinine Ratio 11.5 (10-20) Lactic Acid Level 1.5 mmol/L (0.4-2.0) Calcium Level 8.8 mg/dl (8.5-10.1) Magnesium Level 2.1 mg/dl (1.8-2.4) Total Bilirubin 0.5 mg/dl (0.2-1) Direct Bilirubin 0.1 mg/dl (0-0.2) Aspartate Amino Transf (AST/SGOT) 15 U/L (15-37) Alanine Aminotransferase (ALT/SGPT) 30 U/L (12-78) Alkaline Phosphatase 53 U/L (45-117) Total Creatine Kinase 60 U/L (39-308) Troponin I < 0.015 ng/ml (0-0.045) C-Reactive Protein < 0.29 mg/dl (0-0.29) Total Protein 7.0 gm/dl (6.4-8.2) Albumin 4.0 gm/dl (3.4-5.0) Lipase 71 U/L (73-393) Thyroid Stimulating Hormone (TSH) 0.604 uIu/ml (0.300-4.500) Urine Color YELLOW Urine Appearance CLEAR (CLEAR) Urine pH 5.5 (4.5-7.5) Urine Specific [place] 1.011 (1.000-1.030) Urine Protein NEG (NEG) Urine Glucose (UA) NEG (NEG) Urine Ketones NEG (NEG) Urine Occult Blood NEG (NEG) Urine Nitrite NEG (NEG) Urine Bilirubin NEG (NEG) Urine Urobilinogen NEG (NEG) Urine Leukocyte Esterase NEG (NEG) Laboratory results reviewed by me Medications Administered Medications (Trade) Dose Ordered Sig/Margaret Route Start Time Stop Time Status Last Admin Dose Admin Sodium Chloride 2,000 ml @ 999 mls/hr Q2H1M STAT IV 10/07/17 16:46 10/07/17 18:46 DC 10/07/17 17:10 999 MLS/HR Metoclopramide HCl (Reglan Inj) 10 mg NOW STAT IV 10/07/17 16:46 10/07/17 16:51 DC 10/07/17 17:10 10 MG ECG Per My Interpretation Indication: weakness Rate (beats per minute): 88 Rhythm: normal sinus Findings: no acute ischemic change, other (normal axis) ED Course 1626: The patient was evaluated in room C4. A complete history and physical exam was performed. 1958: I reevaluated the patient. I updated him on the results. 2011: I discussed the patient's case with Dr. Jacobo, [facility]. She agrees with further outpatient workup given reassuring results today in the ED. She has no other concerns at this time given that he can ambulate. 2016: I discussed the patient's case with Dr. Muñoz, family medicine. He similarly agrees with further outpatient work up. 2033: I reevaluated the patient. Discussed results and discharge instructions: He verbalized understanding and agreement. The patient is ready for discharge. Medical Decision I reviewed the patient's past medical history, medications, and the nursing notes as described above. Differential diagnosis: Etiologies such as metabolic, infection, hypo/hyperglycemia, electrolyte abnormalities, cardiac sources, intracerebral event, toxicologic, neurologic, as well as others were entertained. The patient is a 42-year-old gentleman with a complicated past medical history of a diagnosis of systemic sclerosis and scleroderma with chronic symptoms of intermittent blurred vision and paresthesias over the past year now presenting with worsening symptoms over the past month with acutely worsening symptoms over the past 4 days per hpi. While the patient is fatigued appearing but no acute distress, afebrile stable vital signs. On exam the patient has no object deficits and is neuro intact including normal cerebellar function with finger-to -nose, alternating palms, [id number]. Labs are unremarkable including WBC, ESR, CRP, CPK, lactate are all within normal limits. MRI with and without contrast of the brain and orbits negative for any acute findings and does not demonstrate any evidence of demyelinating disease or optic neuritis. Patient was feeling improved after IV fluid hydration and Reglan. This was discussed with Dr. Jacobo, neurology spare person, as the patient has a an appointment to establish care with Dr. Mueller on October 17. She agrees that given the patient's symptoms are not debilitating and he can still function in the setting of the reassuring workup today there is no indication for further evaluation in the emergency department patient can call the office on Tuesday to be placed on the cancellation list to possibly obtain an earlier appointment. Case additionally discussed with the patient's primary care doctor who additionally agrees that workup is reassuring and the patient follow-up outpatient. Of note the patient did see a rafter cutting machine operator in [place], Dr. Diaz but is reserved about contacting him for recommendations as he is planning to change providers. Of note, there does appear to be some discrepancy in the patient's workup for his systemic sclerosis where at one-point the patient had lab tests that were positive for SCLR antibody and then at another point were negative. Findings and plan for follow-up reviewed with patient. Patient agreeable and d/c'd per discharge instructions. Medication Reconcilliation Current Medication List: was personally reviewed by me Blood Pressure Screening Patient's blood pressure: Elevated blood pressure Blood pressure disposition: Elevated BP felt to be situational Consults Time Called: 2010 Consulting Physician: Dr. Jacobo, [facility] neurology Returned Call: 2011 I discussed the patient's case with her. She agrees with further outpatient workup given reassuring results today in the ED. She has no other concerns at this time given that he can ambulate. Additional Consults: Time Called: 2014 Consulted Physician: Dr. Muñoz, family medicine Returned Call: 2016 Additional Comments: I discussed the patient's case with him. He similarly agrees with further outpatient work up. Impression Primary Impression: Paresthesias Additional Impressions: Dizziness Blurred vision, bilateral Scribe Attestation The scribe's documentation has been prepared under my direction and personally reviewed by me in its entirety. I confirm that the note above accurately reflects all work, treatment, procedures, and medical decision making performed by me. Departure Information Dispostion Home / Self-Care Referrals Bob Muñoz M.D. (PCP) Patient Instructions Dizziness Fainting Poss Causes, ED Blurred Vision, ED Paraesthesias, My [facility] Additional Instructions Please follow up with your primary care physician on Tuesday and neurology, Dr. Mueller, as scheduled for re-evaluation. The cause of your symptoms is unclear at this time. Otherwise, your exam, EKG, chest xray, lab results, MRI of your brain and orbits with and without contrast did not show signs of an emergent condition at this time. Drink plenty of fluids to ensure hydration. Return to the emergency department for worsening symptoms as described in the accompanying instructions. Problem Qualifiers
[2017-10-07 20:51] VITALS: BP 151/96; PULSE 73; O2SAT 96
== END 2017-10-07 20:51 | disposition home or self-care (01) ==
LOC: C.EDB 16:12 → C.EDC 20:51
DX: R20.2 Paresthesia of skin (principal); R42 Dizziness and giddiness; H53.8 Other visual disturbances; Z82.0 Family history of epilepsy and other diseases of the nervous system; M34.9 Systemic sclerosis, unspecified; Z88.0 Allergy status to penicillin; Z91.09 Other allergy status, other than to drugs and biological substances; Z79.52 Long term (current) use of systemic steroids